=== PATIENT | male | born 1970 | race Caucasian/White ===

== ENCOUNTER 2021-06-19 19:41 | Inpatient (IN) | payer BC ==
[2021-06-19] MEDS ORDERED: Zofran 4 MG/2 ML VIAL IV ONE (20:12)
[2021-06-19] MEDS ORDERED: Hydromorphone 1 mg/ml Injection IV ONE (20:12)
[2021-06-19] MEDS ORDERED: Hydromorphone 1 mg/ml Injection ONE (20:23)
[2021-06-19] MEDS ORDERED: Zofran 4 MG/2 ML VIAL ONE (20:23)
--- NOTE | 2021-06-19 20:34 | ERPHSYRPT ---
- History of Present Illness Time Seen by Provider: 06/19/21 19:43 Source: patient Exam Limitations: no limitations Patient Subjective Stated Complaint: Patient states " Triage Nursing Assessment: Patient arrived to ED Physician History: 51 years old male with a history of hypertension, anxiety/depression, chronic pain presented in the ER with chief complaint of bilateral thigh cramping for the last 3 to 4 days with progressive worsening. Patient reports pain with movements of lower extremities/ambulation and better with resting. Does have chronic swelling left ankle after surgery which is not any worse than usual. Denies any fall or trauma. No swelling of thighs reported. Does reports having similar symptoms few years ago when he was admitted at [facility] and was found to have hypokalemia. He was supposed to take potassium supplements but has stopped taking for quite some time. Denies any chest pain palpitations or shortness of breath. Does have generalized weakness fatigue and malaise feeling. Vaccinated against COVID-19. Timing/Duration: day(s) (4), intermittent, gradual onset, worse Severity: moderate Modifying Factors: Improves With: rest. Worsens With: movement Associated Symptoms: weakness Allergies/Adverse Reactions: No Known Drug Allergies Allergy (Verified 06/20/21 02:25) Home Medications: Carvedilol 12.5 mg [Coreg 12.5 mg] 12.5 mg PO BID 04/09/16 [History] Desvenlafaxine Succinate [Pristiq ER] 50 mg PO DAILY 04/09/16 [History] Meloxicam 15 mg [Meloxicam 15 MG] 15 mg PO DAILY 04/09/16 [History] Amlodipine Besylate/Benazepril [Amlodipine-Benazepril 10-40 mg] 1 tab PO DAILY 06/19/21 [History] Hx Tetanus, Diphtheria Vaccination/Date Given: No Hx Influenza Vaccination/Date Given: No Hx Pneumococcal Vaccination/Date Given: No Immunizations Up to Date: Yes Travel Risk - International Travel Have you traveled outside of the country in past 3 weeks: No - Coronavirus Screening Are you exhibiting any of the following symptoms?: No Close contact with a COVID-19 positive Pt in past 14-21 Days: No - Vaccine Status Have you recieved a Covid-19 vaccination: Yes Project Engineer: [employer] - Vaccination Dates Date of 2cond Vaccination (if applicable): 04/16/21 - Review of Systems Constitutional: Fatigue, Weakness Eyes: No Symptoms Ears, Nose, & Throat: No Symptoms Respiratory: No Symptoms Cardiac: No Symptoms Abdominal/Gastrointestinal: No Symptoms Genitourinary Symptoms: No Symptoms Musculoskeletal: Arthralgias, Myalgias Skin: No Symptoms Neurological: No Symptoms Psychological: No Symptoms Endocrine: No Symptoms Hematologic/Lymphatic: No Symptoms Immunological/Allergic: No Symptoms - Past Medical History Pertinent Past Medical History: Yes Neurological History: No Pertinent History ENT History: No Pertinent History Cardiac History: Hypertension, Other Respiratory History: No Pertinent History Endocrine Medical History: No Pertinent History Musculoskeletal History: Degenerative Disk Disease, Osteoarthritis GI Medical History: No Pertinent History History: No Pertinent History Psycho-Social History: Depression Male Reproductive Disorders: No Pertinent History Other Medical History: mitral valve prolapse, got a spinal injection for pain 3 weeks ago. R LEN 4 years ago. Pt has cadaver bone graft in the R knee. - Past Surgical History Past Surgical History: Yes Neuro Surgical History: No Pertinent History Cardiac: No Pertinent History Respiratory: No Pertinent History Gastrointestinal: Hernia Repair Genitourinary: No Pertinent History Musculoskeletal: Joint Replacement Male Surgical History: No Pertinent History Other Surgical History: R hip replacement - Social History Smoking Status: Current every day smoker How long have you smoked: 16 years Exposure to second hand smoke: Yes Drug Use: none Patient Lives Alone: No - Nursing Vital Signs Nursing Vital Signs: Initial Vital Signs Temperature 97.6 F 06/19/21 19:41 Pulse Rate 60 06/19/21 19:41 Respiratory Rate 18 06/19/21 19:41 Blood Pressure 114/64 06/19/21 19:41 O2 Sat by Pulse Oximetry 100 06/19/21 19:41 Pain Scale Pain Intensity 3 - Physical Exam General Appearance: no apparent distress, alert Eye Exam: PERRL/EOMI, eyes nml inspection Ears, Nose, Throat Exam: normal ENT inspection, pharynx normal Neck Exam: normal inspection, supple, full range of motion Respiratory Exam: normal breath sounds, lungs clear Cardiovascular Exam: regular rate/rhythm, normal heart sounds Gastrointestinal/Abdomen Exam: soft, normal bowel sounds, No tenderness Back Exam: normal inspection, normal range of motion Extremity Exam: swelling (Left ankle with pitting edema and also swelling left foot. Well palpable dorsalis pedis. Cap refill less than 3 seconds.), tenderness (Tenderness bilateral thigh muscles without any swelling. No increased temperature. No bony tenderness.), other, No roseanna's sign Neurologic Exam: alert, oriented x 3, cooperative, purler II-XII nml as tested Skin Exam: normal color SpO2 Interpretation: normal SpO2: 100 O2 Delivery: Room Air - Course EKG Interpreted by Me: RATE (59), Sinus Ha, NORMAL AXIS, NORMAL INTERVALS, Non-specific ST Changes, Other (Nonspecific T wave changes) Ordered Tests: Medication Summary Generic Name Dose Route Start Last Admin Trade Name Freq PRN Reason Stop Dose Admin Acetaminophen 1,000 mg 06/21/21 17:11 06/21/21 17:12 Acetaminophen 500 Mg Tablet PO 07/21/21 17:10 1,000 mg Q4H PRN PRN Administration HEADACHE Hydrocodone Bitart/Acetaminophen 1 tab 06/21/21 17:11 06/21/21 18:24 Hydrocodone/Apap 5/325 Mg Tablet PO 06/26/21 17:10 1 tab Q4H PRN PRN Administration PAIN Amlodipine Besylate 10 mg 06/20/21 10:00 06/21/21 09:08 Amlodipine Besylate 5 Mg Tablet PO 07/20/21 09:59 10 mg DAILY ISA Administration Benazepril HCl 40 mg 06/20/21 10:00 06/21/21 09:08 Benazepril Hcl 10 Mg Tablet PO 07/20/21 09:59 40 mg DAILY ISA Administration Carvedilol 12.5 mg 06/20/21 10:00 06/21/21 09:08 Carvedilol 12.5 Mg Tablet PO 07/20/21 09:59 12.5 mg BID ISA Administration Desvenlafaxine Succinate 25 mg 06/22/21 10:00 Desvenlafaxine Succinate 50 Mg Tab.Er.24h PO 07/22/21 09:59 DAILY ISA Meloxicam 15 mg 06/20/21 10:00 06/21/21 09:08 Meloxicam 7.5 Mg Tablet PO 07/20/21 09:59 15 mg DAILY ISA Administration Ondansetron HCl 4 mg 06/20/21 02:12 Ondansetron Hcl 4 Mg/2 Ml Vial IV 07/20/21 02:11 Q6H PRN PRN NAUSEA/VOMITING Pantoprazole Sodium 40 mg 06/20/21 10:00 06/21/21 09:08 Pantoprazole 40 Mg Vial IV 07/20/21 09:59 40 mg Q24H10 ISA Administration Potassium Bicarbonate 25 meq 06/20/21 10:00 06/21/21 09:08 Potassium Bicarbonate 25 Meq Tab PO 07/20/21 09:59 25 meq BID ISA Administration Discontinued Medications Generic Name Dose Route Start Last Admin Trade Name Freq PRN Reason Stop Dose Admin Acetaminophen 650 mg 06/20/21 02:12 06/20/21 19:31 Acetaminophen 325 Mg Tablet PO 07/20/21 02:11 650 mg Q4H PRN PRN Administration PAIN AND/OR FEVER Desvenlafaxine Succinate 50 mg 06/20/21 10:00 06/21/21 07:30 Desvenlafaxine Succinate 50 Mg Tab.Er.24h PO 07/20/21 09:59 Not Given DAILY ISA Hydromorphone HCl 0.5 mg 06/19/21 20:12 06/19/21 20:33 Hydromorphone 1 Mg/1ml Inj 1 Mg/Ml Syringe IV 06/19/21 20:13 0.5 mg STAT ONE Administration Hydromorphone HCl Confirm 06/19/21 20:23 Hydromorphone 1 Mg/1ml Inj 1 Mg/Ml Syringe Administered 06/19/21 20:24 Dose 1 mg .ROUTE .STK-MED ONE Hydromorphone HCl 0.5 mg 06/20/21 02:12 06/21/21 12:29 Hydromorphone 1 Mg/1ml Inj 1 Mg/Ml Syringe IV 06/25/21 02:11 0.5 mg Q4H PRN PRN Administration PAIN Potassium Chloride 20 meq in 100 mls @ 50 mls/hr 06/19/21 21:15 06/19/21 22:15 Potassium Chloride 20 Meq In Water 100ml IV 06/20/21 01:14 50 mls/hr Q2H ISA Administration Sodium Chloride Confirm 06/19/21 21:35 Sodium Chloride 0.9% 500 Ml Administered 06/19/21 21:36 Dose 500 mls @ ud IV .STK-MED ONE Sodium Chloride 500 mls @ 100 mls/hr 06/19/21 21:45 06/20/21 06:08 Sodium Chloride 0.9% 500 Ml IV 07/19/21 21:44 100 mls/hr .Q5H ISA Administration Potassium Chloride Confirm 06/19/21 21:35 Potassium Chloride 20 Meq In Water 100ml Administered 06/19/21 21:36 Dose 100 mls @ ud IV .STK-MED ONE Potassium Chloride Confirm 06/19/21 22:02 Potassium Chloride 20 Meq In Water 100ml Administered 06/19/21 22:03 Dose 100 mls @ ud IV .STK-MED ONE Potassium Chloride 20 meq in 100 mls @ 50 mls/hr 06/20/21 02:12 06/20/21 04:38 Potassium Chloride 20 Meq In Water 100ml IV 06/20/21 06:11 50 mls/hr Q2H ISA Administration Sodium Chloride Confirm 06/20/21 05:58 Sodium Chloride 0.9% 1000 Ml Administered 06/20/21 05:59 Dose 1,000 mls @ ud .ROUTE .STK-MED ONE Sodium Chloride 1,000 mls @ 100 mls/hr 06/20/21 07:45 06/20/21 13:55 Sodium Chloride 0.9% 1000 Ml IV 07/20/21 07:44 Not Given .Q10H ISA Potassium Chloride 20 meq in 100 mls @ 50 mls/hr 06/20/21 09:30 06/20/21 12:16 Potassium Chloride 20 Meq In Water 100ml IV 06/20/21 13:29 50 mls/hr Q2H ISA Administration Potassium Chloride/Sodium Chloride 1,000 mls @ 100 mls/hr 06/20/21 13:00 06/21/21 00:36 Sodium Chloride 0.9% W/ 20 Meq Kcl/Liter IV 07/20/21 12:59 Not Given .Q10H ISA Potassium Chloride/Sodium Chloride Confirm 06/20/21 09:38 Sodium Chloride 0.9% W/ 20 Meq Kcl/Liter Administered 06/20/21 09:39 Dose 1,000 mls @ ud IV .STK-MED ONE Potassium Chloride 20 meq in 100 mls @ 50 mls/hr 06/20/21 17:00 06/20/21 19:31 Potassium Chloride 20 Meq In Water 100ml IV 06/20/21 20:59 50 mls/hr Q2H ISA Administration Potassium Chloride 20 meq in 100 mls @ 50 mls/hr 06/20/21 21:00 06/21/21 00:42 Potassium Chloride 20 Meq In Water 100ml IV 06/21/21 00:59 50 mls/hr Q2H ISA Administration Potassium Chloride 20 meq in 100 mls @ 50 mls/hr 06/21/21 06:00 06/21/21 0 7:41 Potassium Chloride 20 Meq In Water 100ml IV 06/21/21 09:59 50 mls/hr Q2H ISA Administration Potassium Chloride 20 meq in 100 mls @ 50 mls/hr 06/21/21 13:00 06/21/21 14:14 Potassium Chloride 20 Meq In Water 100ml IV 06/21/21 16:59 50 mls/hr Q2H ISA Administration Ketorolac Tromethamine 30 mg 06/19/21 23:33 06/19/21 23:54 Ketorolac Tromethamine 30 Mg/Ml Inj IV 06/19/21 23:34 30 mg STAT ONE Administration Ketorolac Tromethamine Confirm 06/19/21 23:44 Ketorolac Tromethamine 30 Mg/Ml Inj Administered 06/19/21 23:45 Dose 30 mg .ROUTE .STK-MED ONE Miscellaneous Medication 1 ea 06/21/21 10:00 06/21/21 09:08 Miscellaneous Medication Order 1 Ea Each 06/21/21 10:01 1 ea NOW ONE Administration Non-Formulary Medication 1 each 06/21/21 07:32 06/21/21 09:09 Pharmacy Dosing Request 06/21/21 07:33 1 each STAT ONE Administration Ondansetron HCl 4 mg 06/19/21 20:12 06/19/21 20:33 Ondansetron Hcl 4 Mg/2 Ml Vial IV 06/19/21 20:13 4 mg STAT ONE Administration Ondansetron HCl Confirm 06/19/21 20:23 Ondansetron Hcl 4 Mg/2 Ml Vial Administered 06/19/21 20:24 Dose 4 mg .ROUTE .STK-MED ONE Potassium Bicarbonate 50 meq 06/19/21 21:15 06/19/21 21:38 Potassium Bicarbonate 25 Meq Tab PO 06/19/21 21:16 50 meq STAT ONE Administration Potassium Bicarbonate Confirm 06/19/21 21:34 Potassium Bicarbonate 25 Meq Tab Administered 06/19/21 21:35 Dose 50 meq .ROUTE .STK-MED ONE Potassium Bicarbonate 25 meq 10/27/21 11:00 06/20/21 11:26 Potassium Bicarbonate 25 Meq Tab PO 06/20/21 11:01 25 meq ONCE ONE Administration Potassium Chloride 40 meq 06/20/21 14:00 06/20/21 14:15 Potassium Chloride 10 Meq Tablet PO 06/20/21 14:01 40 meq ONCE ONE Administration Potassium Chloride 40 meq 06/21/21 06:00 06/21/21 05:39 Potassium Chloride 10 Meq Tablet PO 06/21/21 06:01 40 meq STAT ONE Administration Potassium Chloride 40 meq 06/21/21 13:00 06/21/21 12:29 Potassium Chloride 10 Meq Tablet PO 06/21/21 13:01 40 meq ONCE ONE Administration Lab/Rad Data: Laboratory Result Diagrams 06/19/21 20:20 06/20/21 00:22 Laboratory Results 06/20/21 06/19/21 06/19/21 Range/Units 00:22 22:25 21:15 WBC (4.0-10.5) K/mm3 RBC (4.1-5.6) M/mm3 Hgb (12.5-18.0) gm/dl Hct (42-50) % MCV (78-100) fl MCH (26-32) pg MCHC (32-36) g/dl RDW (11.5-14.0) % Plt Count (150-450) K/mm3 MPV (7.5-11.0) fl Gran % (36.0-66.0) % Eos # (Auto) (0-0.5) Absolute Lymphs (auto) (1.0-4.6) Absolute Monos (auto) (0.0-1.3) Lymphocytes % (24.0-44.0) % Monocytes % (0.0-12.0) % Eosinophils % (0.00-5.0) % Basophils % (0.0-0.4) % Absolute Granulocytes (1.4-6.9) Basophils # (0-0.4) Sodium 143 (137-145) mmol/L Potassium 1.9 L* D (3.5-5.1) mmol/L Chloride 104 (98-107) mmol/L Carbon Dioxide 25 (22-30) mmol/L Anion Gap 15.3 H BUN 13 (9-20) mg/dL Creatinine 0.91 (0.66-1.25) mg/dL Estimated GFR > 60.0 ML/MIN Glucose 82 (74-106) mg/dL Calcium 8.4 (8.4-10.2) mg/dL Magnesium (1.6-2.3) mg/dL Total Bilirubin (0.2-1.3) mg/dL AST (17-59) U/L ALT (0-50) U/L Alkaline Phosphatase (38-126) U/L Creatine Kinase (55-170) U/L Troponin I 0.057 H* 0.065 H* (0.000-0.034) ng/mL NT-Pro-B Natriuret Pep (0-900) pg/mL Serum Total Protein (6.3-8.2) g/dL Albumin (3.5-5.0) g/dL SARS-CoV-2 (PCR) NEGATIVE (NEGATIVE) 06/19/21 06/19/21 06/19/21 Range/Units 21:00 20:20 20:20 WBC (4.0-10.5) K/mm3 RBC (4.1-5.6) M/mm3 Hgb (12.5-18.0) gm/dl Hct (42-50) % MCV (78-100) fl MCH (26-32) pg MCHC (32-36) g/dl RDW (11.5-14.0) % Plt Count (150-450) K/mm3 MPV (7.5-11.0) fl Gran % (36.0-66.0) % Eos # (Auto) (0-0.5) Absolute Lymphs (auto) (1.0-4.6) Absolute Monos (auto) (0.0-1.3) Lymphocytes % (24.0-44.0) % Monocytes % (0.0-12.0) % Eosinophils % (0.00-5.0) % Basophils % (0.0-0.4) % Absolute Granulocytes (1.4-6.9) Basophils # (0-0.4) Sodium 141 (137-145) mmol/L Potassium < 1.5 L* (3.5-5.1) mmol/L Chloride 101 (98-107) mmol/L Carbon Dioxide 25 (22-30) mmol/L Anion Gap Not Reportable BUN 14 (9-20) mg/dL Creatinine 0.99 (0.66-1.25) mg/dL Estimated GFR > 60.0 ML/MIN Glucose 84 (74-106) mg/dL Calcium 8.9 (8.4-10.2) mg/dL Magnesium 2.3 (1.6-2.3) mg/dL Total Bilirubin 0.70 (0.2-1.3) mg/dL AST 59 (17-59) U/L ALT 34 (0-50) U/L Alkaline Phosphatase 179 H (38-126) U/L Creatine Kinase 231 H (55-170) U/L Troponin I (0.000-0.034) ng/mL NT-Pro-B Natriuret Pep 488 (0-900) pg/mL Serum Total Protein 7.5 (6.3-8.2) g/dL Albumin 4.3 (3.5-5.0) g/dL SARS-CoV-2 (PCR) (NEGATIVE) 06/19/21 Range/Units 20:20 WBC 8.7 (4.0-10.5) K/mm3 RBC 3.14 L (4.1-5.6) M/mm3 Hgb 12.4 L (12.5-18.0) gm/dl Hct 34.9 L (42-50) % MCV 111.1 H (78-100) fl MCH 39.5 H (26-32) pg MCHC 35.5 (32-36) g/dl RDW 14.3 H (11.5-14.0) % Plt Count 206 (150-450) K/mm3 MPV 10.9 (7.5-11.0) fl Gran % 59.3 (36.0-66.0) % Eos # (Auto) 0.11 (0-0.5) Absolute Lymphs (auto) 2.84 (1.0-4.6) Absolute Monos (auto) 0.58 (0.0-1.3) Lymphocytes % 32.5 (24.0-44.0) % Monocytes % 6.6 (0.0-12.0) % Eosinophils % 1.3 (0.00-5.0) % Basophils % 0.3 (0.0-0.4) % Absolute Granulocytes 5.18 (1.4-6.9) Basophils # 0.03 (0-0.4) Sodium (137-145) mmol/L Potassium (3.5-5.1) mmol/L Chloride (98-107) mmol/L Carbon Dioxide (22-30) mmol/L Anion Gap BUN (9-20) mg/dL Creatinine (0.66-1.25) mg/dL Estimated GFR ML/MIN Glucose (74-106) mg/dL Calcium (8.4-10.2) mg/dL Magnesium (1.6-2.3) mg/dL Total Bilirubin (0.2-1.3) mg/dL AST (17-59) U/L ALT (0-50) U/L Alkaline Phosphatase (38-126) U/L Creatine Kinase (55-170) U/L Troponin I (0.000-0.034) ng/mL NT-Pro-B Natriuret Pep (0-900) pg/mL Serum Total Protein (6.3-8.2) g/dL Albumin (3.5-5.0) g/dL SARS-CoV-2 (PCR) (NEGATIVE) - Progress Progress: improved, pain not gone completely Progress Note: 06/19/21 22:09 Is given symptomatic treatment for pain. EKG showed sinus bradycardia without any ST elevation but has nonspecific ST and T wave changes. Negative initial troponins. Chemistry profile showed normal magnesium of 2.3 but potassium less than 1.5. I have discussed with Dr. Simmons, recommended either transfer or consultation with nephrology. [facility] and [facility] are not excepting transfers at present. I have discussed with Dr. Rice compliance officer, reviewed history and lab findings, recommended giving initial oral 50 mg equivalent and initial IV potassium runs 20 M EQ per hour x2 followed by 10 M EQ per hour and repeating oral potassium in few hours. We will repeat potassium after initial few runs and discussed with Dr. Stanley which he agrees with admitting patient in here. Plan discussed with patient who understand and agrees with it. 06/19/21 23:00 patient has elevated initial troponin 0.065 but still continues to deny any pain/shortness of breath. He is given aspirin. Discussed with Dr. Simmons, recommended discussion with [facility] hospitalist and patient to be in the process of transfer list and until then she will take care of patient in here. Discussed with Dr. Headley [facility] hospitalist, reviewed history, work-up and patient is accepted for transfer. Discussed with Dr.: Kaila Will see patient in: hospital (full admit) Counseled pt/family regarding: lab results, diagnosis - Departure Departure Disposition: In-patient Admission Clinical Impression: Hypokalemia, NSTEMI (non-ST elevated myocardial infarction) Condition: Stable Critical Care Time: Yes Critical Care Time(excluding separately billable procedures): Critical 30-74 mins (60)
[2021-06-19 20:36] LABS: Absolute Neutrophil Ct (ANC) 5.18 (1.4-6.9); BASOPHIL % 0.3 % (0.0-0.4); Basophil (Absolute #) 0.03 (0-0.4); Eosinophil % 1.3 % (0.00-5.0); Eosinophil (Absolute #) 0.11 (0-0.5); Hematocrit 34.9 % (42-50); Hemoglobin 12.4 gm/dl (12.5-18.0); Lymphocyte (Absolute #) 2.84 (1.0-4.6); Lymphocytes % 32.5 % (24.0-44.0); Mean Cell Volume 111.1 fl (78-100); Mean Corpuscular Hemoglobin 39.5 pg (26-32); Mean Corpuscular Hgb Concent. 35.5 g/dl (32-36); Mean Platelet Volume 10.9 fl (7.5-11.0); Monocyte (Absolute #) 0.58 (0.0-1.3); Monocytes % 6.6 % (0.0-12.0); Neutrophil % 59.3 % (36.0-66.0); Platelet Count 206 K/mm3 (150-450); Red Blood Count 3.14 M/mm3 (4.1-5.6); Red Cell Distribution Width 14.3 % (11.5-14.0); White Blood Count 8.7 K/mm3 (4.0-10.5)
[2021-06-19 20:54] LABS: ALBUMIN 4.3 g/dL (3.5-5.0); ALKALINE PHOSPHATASE 179 U/L (38-126); BLOOD UREA NITROGEN 14 mg/dL (9-20); CHLORIDE 101 mmol/L (98-107); CK-Creatinine Phosphokinase 231 U/L (55-170); Calcium 8.9 mg/dL (8.4-10.2); Carbon Dioxide 25 mmol/L (22-30); Creatinine 1 0.99 mg/dL (0.66-1.25); EST GLOMERULAR FILTRATION RATE > 60.0 ML/MIN; Glucose 84 mg/dL (74-106); SGOT/AST 59 U/L (17-59); SGPT/ALT 34 U/L (0-50); SODIUM 141 mmol/L (137-145); Total Protein 7.5 g/dL (6.3-8.2)
[2021-06-19 21:14] LABS: Potassium < 1.5 mmol/L (3.5-5.1)
[2021-06-19] MEDS ORDERED: K-LYTE 25 MEQ PO ONE (21:15)
[2021-06-19] MEDS ORDERED: K-LYTE 25 MEQ ONE (21:34)
[2021-06-19] MEDS ORDERED: POTASSIUM CHLORIDE 20 mEq IN WATER 100ML 100 ML IV ONE ×2 (21:35→22:02)
[2021-06-19] MEDS ORDERED: Sodium Chloride 0.9% 500 ML 500 ML IV ONE (21:35)
[2021-06-19] MEDS: POTASSIUM CHLORIDE 20 mEq IN WATER 100ML 20 MEQ/100 ML BAG IV SCH ×2 (21:38→22:15)
[2021-06-19] MEDS: Sodium Chloride 0.9% 500 ML 500 ML IV SCH (21:40)
[2021-06-19] MEDS ORDERED: TORAdol 30 mg Injection IV ONE (23:33)
[2021-06-19] MEDS ORDERED: TORAdol 30 mg Injection ONE (23:44)
[2021-06-20 00:46] LABS: ANION GAP 15.3 MEQ/L (5-15); BLOOD UREA NITROGEN 13 mg/dL (9-20); CHLORIDE 104 mmol/L (98-107); Calcium 8.4 mg/dL (8.4-10.2); Carbon Dioxide 25 mmol/L (22-30); Creatinine 1 0.91 mg/dL (0.66-1.25); EST GLOMERULAR FILTRATION RATE > 60.0 ML/MIN; Glucose 82 mg/dL (74-106); SODIUM 143 mmol/L (137-145)
[2021-06-20 00:55] LABS: Potassium 1.9 mmol/L (3.5-5.1); TROPONIN 0.057 ng/mL (0.000-0.034)
[2021-06-20] MEDS ORDERED: TYLENOL 325 MG PO PRN (02:12)
[2021-06-20] MEDS ORDERED: Zofran 4 MG/2 ML VIAL IV PRN (02:12)
[2021-06-20] MEDS: POTASSIUM CHLORIDE 20 mEq IN WATER 100ML 20 MEQ/100 ML BAG IV SCH ×7 (02:34→22:28)
[2021-06-20 04:00] LABS: Absolute Neutrophil Ct (ANC) 4.71 (1.4-6.9); BASOPHIL % 0.4 % (0.0-0.4); Basophil (Absolute #) 0.03 (0-0.4); Eosinophil % 1.2 % (0.00-5.0); Eosinophil (Absolute #) 0.09 (0-0.5); Hematocrit 30.5 % (42-50); Hemoglobin 10.9 gm/dl (12.5-18.0); Lymphocyte (Absolute #) 2.14 (1.0-4.6); Lymphocytes % 27.8 % (24.0-44.0); Mean Cell Volume 112.5 fl (78-100); Mean Corpuscular Hemoglobin 40.2 pg (26-32); Mean Corpuscular Hgb Concent. 35.7 g/dl (32-36); Monocyte (Absolute #) 0.73 (0.0-1.3); Monocytes % 9.5 % (0.0-12.0); Neutrophil % 61.1 % (36.0-66.0); Platelet Count 155 K/mm3 (150-450); Red Blood Count 2.71 M/mm3 (4.1-5.6); Red Cell Distribution Width 14.2 % (11.5-14.0); White Blood Count 7.7 K/mm3 (4.0-10.5)
[2021-06-20 04:49] LABS: ALBUMIN 3.6 g/dL (3.5-5.0); ALKALINE PHOSPHATASE 134 U/L (38-126); ANION GAP 10.9 MEQ/L (5-15); BLOOD UREA NITROGEN 11 mg/dL (9-20); CHLORIDE 105 mmol/L (98-107); Calcium 8.5 mg/dL (8.4-10.2); Carbon Dioxide 27 mmol/L (22-30); Creatinine 1 0.87 mg/dL (0.66-1.25); EST GLOMERULAR FILTRATION RATE > 60.0 ML/MIN; Glucose 78 mg/dL (74-106); SGOT/AST 50 U/L (17-59); SGPT/ALT 29 U/L (0-50); SODIUM 142 mmol/L (137-145); Total Protein 6.4 g/dL (6.3-8.2)
[2021-06-20 04:54] LABS: Potassium 1.8 mmol/L (3.5-5.1)
[2021-06-20] MEDS ORDERED: Sodium Chloride 0.9% 1000 ML 0 ML ONE (05:58)
[2021-06-20] MEDS: Sodium Chloride 0.9% 500 ML 500 ML IV SCH (06:08)
[2021-06-20] MEDS ORDERED: Sodium Chloride 0.9% 1000 ML 1,000 ML IV SCH (07:45)
--- NOTE | 2021-06-20 08:40 | XRAY ---
Indication: Palpitations. Multiple contiguous axial images obtained through the chest using 100 cc Isovue 370 contrast and PE protocol. Comparison: None There is good opacification of the pulmonary arteries to include the lobar and segmental branches. No pulmonary embolus. Heart not enlarged. Aorta normal in course and caliber without aneurysm/dissection. No pathologic mediastinal/hilar lymphadenopathy. Lungs demonstrates small left apical bullae, minimal bibasilar fibrosis/scarring, and tiny left lower lobe calcified granuloma. No suspicious pulmonary mass/nodule, infiltrate, or effusion. Bony thorax intact. Limited upper abdomen demonstrates 15 cm splenomegaly and 2.4 cm right renal cyst. Visualized liver demonstrates micronodular margins as seen with cirrhosis. Impression: 1. Negative pulmonary embolus. No acute cardiopulmonary abnormalities. 2. Incidental left apical bullae, left lower lobe calcified granuloma, cirrhotic liver, splenomegaly, and right renal cyst. Comment: Preliminary interpretation made by [facility]. No critical discrepancy.
[2021-06-20] MEDS: PROTONIX 40 MG IV IV SCH (08:56)
[2021-06-20] MEDS: Hydromorphone 1 mg/ml Injection IV PRN ×3 (09:00→18:19)
[2021-06-20] MEDS: MELOXICAM PO SCH (09:01)
[2021-06-20] MEDS: PRISTIQ ER PO SCH (09:01)
[2021-06-20] MEDS: NORVASC 5 MG PO SCH (09:12)
[2021-06-20] MEDS ORDERED: Sodium Chloride 0.9% W/ 20 mEq KCl/LITER 1,000 ML IV ONE (09:38)
[2021-06-20] MEDS: Sodium Chloride 0.9% W/ 20 mEq KCl/LITER 1,000 ML IV SCH (09:41)
[2021-06-20] MEDS: K-LYTE 25 MEQ PO SCH ×2 (09:41→21:26)
[2021-06-20] MEDS ORDERED: NON-FORMULARY ITEM (Meloxicam 15 Mg [Meloxicam 15 Mg] 15 MG Tablet) PO SCH (10:00)
[2021-06-20] MEDS ORDERED: NON-FORMULARY ITEM (Amlodipine Besylate/Benazepril [Amlodipine-Benazepril 10-40 Mg] 1 EACH PO SCH (10:00)
[2021-06-20] MEDS ORDERED: K-LYTE 25 MEQ PO ONE (11:00)
[2021-06-20] MEDS: COREG 12.5 MG PO SCH ×2 (13:18→21:27)
[2021-06-20] MEDS: Lotensin 10 MG PO SCH (13:18)
[2021-06-20] MEDS ORDERED: Klor Con 10 MEQ PO ONE (14:00)
[2021-06-20 16:37] LABS: ANION GAP 9.5 MEQ/L (5-15); BLOOD UREA NITROGEN 9 mg/dL (9-20); CHLORIDE 106 mmol/L (98-107); Calcium 8.4 mg/dL (8.4-10.2); Carbon Dioxide 32 mmol/L (22-30); EST GLOMERULAR FILTRATION RATE > 60.0 ML/MIN; Glucose 140 mg/dL (74-106); SODIUM 145 mmol/L (137-145)
[2021-06-20 16:48] LABS: Potassium 2.1 mmol/L (3.5-5.1)
[2021-06-21] MEDS: Sodium Chloride 0.9% W/ 20 mEq KCl/LITER 1,000 ML IV SCH (00:36)
[2021-06-21] MEDS: POTASSIUM CHLORIDE 20 mEq IN WATER 100ML 20 MEQ/100 ML BAG IV SCH ×5 (00:42→14:14)
[2021-06-21] MEDS: Hydromorphone 1 mg/ml Injection IV PRN ×3 (04:03→12:29)
[2021-06-21] MEDS ORDERED: Klor Con 10 MEQ PO ONE ×4 (06:00→20:26)
[2021-06-21] MEDS: PRISTIQ ER PO SCH (07:30)
[2021-06-21] MEDS ORDERED: PHARMACY DOSING REQUEST MC ONE (07:32)
--- NOTE | 2021-06-21 07:40 | PCM.NOTE ---
Date and Time: 06/21/21731 Subjective Assessment: Patient continues to have low potassium.On admission Potassium= 1.5 . This morning potassium = 2.0 . [facility] Farmer has given orders for IV and oral potassium 40meq and 40meq then repeat and retest level. Potassium this evening = 2.4 . Patient takes antidepressant Prestique which can cause Hypokalemia as can most of the SSRI group. We cannot stop this med abruptly but will hold todays dose and decrease to 1/2 dose . Patient's PCP is Dr Camila Morse. Objective Exam General Appearance: no apparent distress Neurologic Exam: alert, oriented x 3, cooperative, normal mood/affect Skin Exam: normal color, warm, dry Eye Exam: eyes nml inspection Ears, Nose, Throat Exam: normal ENT inspection Neck Exam: normal inspection Respiratory Exam: normal breath sounds Cardiovascular Exam: regular rate/rhythm Gastrointestinal/Abdomen Exam: soft (nont), normal bowel sounds (nontrnder) Extremity Exam: other (no edema,normal movement of all extremities) Back Exam: normal inspection OBJECTIVE DATA Vital Signs: Vital Signs - 24 hr Temp Pulse Resp BP Pulse Ox 06/21/21 04:00 98.4 F 63 18 128/52 97 06/21/21 00:00 98.2 F 67 18 129/61 96 06/20/21 20:00 71 22 06/20/21 19:38 98.6 F 74 22 123/54 98 06/20/21 16:00 98.3 F 65 14 116/61 99 06/20/21 12:00 62 06/20/21 11:53 99.3 F 62 18 111/57 100 06/20/21 08:00 98.1 F 59 L 18 105/56 99 Pain Assessment - Last Documented Pain Intensity 4 Pain Scale Used 0-10 Pain Scale Intake and Output: Intake & Output 06/18/21 06/19/21 06/20/21 06/21/21 11:59 11:59 11:59 11:59 Intake Total 100 2991 Output Total 1050 4210 Balance -950 -1219 Weight 89.2 kg 89.6 kg Lab Results: Lab Results-Last 24 Hours 06/20/21 06/20/21 06/21/21 Range/Units 09:20 16:10 04:30 Sodium 145 (137-145) mmol/L Potassium 2.1 L* 2.0 L* (3.5-5.1) mmol/L Chloride 106 (98-107) mmol/L Carbon Dioxide 32 H (22-30) mmol/L Anion Gap 9.5 (5-15) MEQ/L BUN 9 (9-20) mg/dL Creatinine 0.80 (0.66-1.25) mg/dL Estimated GFR > 60.0 ML/MIN Glucose 140 H (74-106) mg/dL Calcium 8.4 (8.4-10.2) mg/dL Troponin I 0.061 H* (0.000-0.034) ng/mL Assessment/Plan (1) Hypokalemia Current Visit: Yes Status: Acute Assessment & Plan: [facility] following - awaiting transfer to [place]. Has tolerated IV potassium. Code(s): E87.6 - HYPOKALEMIA (2) NSTEMI (non-ST elevated myocardial infarction) Current Visit: Yes Status: Acute Assessment & Plan: stable ,asymptomatic Code(s): I21.4 - NON-ST ELEVATION (NSTEMI) MYOCARDIAL INFARCTION (3) Depression Current Visit: Yes Status: Chronic Qualifiers: Depression Type: major depressive disorder Assessment & Plan: decrase Pristique from 50mg to 25mg.,discussed with patient . Code(s): F32.A - DEPRESSION, UNSPECIFIED
[2021-06-21 08:47] LABS: ALBUMIN 3.7 g/dL (3.5-5.0); ALKALINE PHOSPHATASE 136 U/L (38-126); ANION GAP 12.2 MEQ/L (5-15); BLOOD UREA NITROGEN 6 mg/dL (9-20); CHLORIDE 104 mmol/L (98-107); Calcium 8.2 mg/dL (8.4-10.2); Carbon Dioxide 30 mmol/L (22-30); Creatinine 1 0.61 mg/dL (0.66-1.25); EST GLOMERULAR FILTRATION RATE > 60.0 ML/MIN; Glucose 96 mg/dL (74-106); SGOT/AST 69 U/L (17-59); SGPT/ALT 34 U/L (0-50); SODIUM 144 mmol/L (137-145); Total Protein 6.6 g/dL (6.3-8.2)
[2021-06-21] MEDS: NORVASC 5 MG PO SCH (09:08)
[2021-06-21] MEDS: MELOXICAM PO SCH (09:08)
[2021-06-21] MEDS: Lotensin 10 MG PO SCH (09:08)
[2021-06-21] MEDS: PROTONIX 40 MG IV IV SCH (09:08)
[2021-06-21] MEDS: K-LYTE 25 MEQ PO SCH ×2 (09:08→21:37)
[2021-06-21] MEDS: COREG 12.5 MG PO SCH ×2 (09:08→21:37)
[2021-06-21] MEDS ORDERED: Miscellaneous Medication Order MC ONE (10:00)
[2021-06-21] MEDS ORDERED: TYLENOL EXTRA STRENGTH 500 MG PO PRN (17:11)
[2021-06-21] MEDS: NORCO 5/325 MG PO PRN ×2 (18:24→21:37)
[2021-06-21 19:55] LABS: MAGNESIUM 2.2 mg/dL (1.6-2.3)
[2021-06-21 20:01] LABS: Potassium 2.4 mmol/L (3.5-5.1)
[2021-06-21 20:03] VITALS: BP 141/84; PULSE 72
[2021-06-21 20:08] VITALS: O2SAT 100
[2021-06-21] MEDS ORDERED: POTASSIUM CHLORIDE 20 mEq IN WATER 100ML 20 MEQ/100 ML BAG IV SCH (20:30)
[2021-06-22] MEDS ORDERED: PRISTIQ ER PO SCH (10:00)
== END 2021-06-21 21:50 | disposition short-term general hospital (02) | DRG 640 ==
LOC: ED 19:41 → ICU 06-20 02:10
PROVIDERS: ADMIT Family Medicine; ATTEND Family Medicine
DX: E87.6 Hypokalemia (principal); I21.4 Non-ST elevation (NSTEMI) myocardial infarction; R25.2 Cramp and spasm; F32.A Depression, unspecified; R53.1 Weakness; R53.83 Other fatigue; Z79.899 Other long term (current) drug therapy; Z20.822 Contact with and (suspected) exposure to COVID-19
CPT/HCPCS: 36000; 36415; 71260; 80048; 80053; 82306; 82550; 83735; 83880; 84132; 84425; 84484; 85025; 96374; 96375; 99285; 99291; J1170; J1885; J2405; J3480; U0003; A9270-GY

== ENCOUNTER 2021-07-05 21:02 | Emergency (ER) | payer BC, MEDICARE ==
[2013-05-21 00:40] VITALS: BP 150/98
[2021-07-05] MEDS ORDERED: Zofran 4 MG/2 ML VIAL IV ONE (21:21)
--- NOTE | 2021-07-05 21:21 | ERPHSYRPT ---
- History of Present Illness Time Seen by Provider: 07/05/21 21:15 Source: patient Exam Limitations: no limitations Physician History: This is a 51-year-old white male who has a history of hypertension, anxiety/depression issues, degenerative joint disease and chronic pain issues. He sees Dr. Alvares for his pain issues. He was seen here on 06/19/2021 and found to be hypokalemic as well as having non-STEMI. He was transferred to [facility] after being admitted into this hospital because his potassium was not rising as it should. Patient was then discharged to home approximately 2 weeks ago per patient report from [facility]. Again, in the last 2 to 3 days the patient has noticed cramping in his lower extremities and in his hands and forearms. He thought that he was hypokalemic again. He had been placed on his potassium during his stay. Dr. Fay, a director digital communications at [facility] who he saw there at that time. This Also wrote for repeat labs this evening. The patient's potassium was found to be 8.9. A repeat potassium at the time of his evaluation the emergency department confirmed this was a real finding. Patient has very minimal shortness of breath and has no chest pain. He has had no nausea vomiting or diarrhea. Timing/Duration: day(s) (2) Severity: moderate Allergies/Adverse Reactions: No Known Drug Allergies Allergy (Verified 07/05/21 21:10) Home Medications: Carvedilol 12.5 mg [Coreg 12.5 mg] 12.5 mg PO BID 04/09/16 [History] Desvenlafaxine Succinate [Pristiq ER] 50 mg PO DAILY 04/09/16 [History] Meloxicam 15 mg [Meloxicam 15 MG] 15 mg PO DAILY 04/09/16 [History] Amlodipine Besylate/Benazepril [Amlodipine-Benazepril 10-40 mg] 1 tab PO DAILY 06/19/21 [History] PANTOPRAZOLE 40 mg Tablet [Protonix 40MG Tablet] 40 mg PO DAILY 07/05/21 [History] Spironolactone 50 mg PO DAILY 07/05/21 [History] Hx Tetanus, Diphtheria Vaccination/Date Given: No Hx Influenza Vaccination/Date Given: No Hx Pneumococcal Vaccination/Date Given: No Travel Risk - Vaccine Status Have you recieved a Covid-19 vaccination: Yes Jawbone Breaker: Pfizer - Vaccination Dates Date of 2cond Vaccination (if applicable): 04/16/21 - Past Medical History Pertinent Past Medical History: Yes Neurological History: No Pertinent History ENT History: No Pertinent History Cardiac History: Hypertension, Other Respiratory History: No Pertinent History Endocrine Medical History: No Pertinent History Musculoskeletal History: Degenerative Disk Disease, Osteoarthritis GI Medical History: No Pertinent History History: No Pertinent History Psycho-Social History: Depression Male Reproductive Disorders: No Pertinent History Other Medical History: HX Mitral Valve Prolapse. R LEN 4 years ago. Pt has cadaver bone graft in the R knee. - Past Surgical History Past Surgical History: Yes Neuro Surgical History: No Pertinent History Cardiac: No Pertinent History Respiratory: No Pertinent History Gastrointestinal: Hernia Repair Genitourinary: No Pertinent History Musculoskeletal: Joint Replacement Male Surgical History: No Pertinent History Other Surgical History: HX R Hip Replacement - Social History Smoking Status: Current every day smoker How long have you smoked: 16 years Exposure to second hand smoke: Yes Drug Use: none Patient Lives Alone: No - Nursing Vital Signs Nursing Vital Signs: Initial Vital Signs Temperature 96.6 F 07/05/21 21:04 Pulse Rate 77 07/05/21 21:04 Respiratory Rate 22 07/05/21 21:04 Blood Pressure 144/76 07/05/21 21:04 O2 Sat by Pulse Oximetry 100 07/05/21 21:04 Pain Scale Pain Intensity 8 - Physical Exam SpO2: 100 - Course Nursing assessment & vital signs reviewed: Yes EKG Interpreted by Me: RATE (73), Sinus Rhythm, NORMAL AXIS, NORMAL INTERVALS, NORMAL QRS, Other (No acute ischemic changes. However, there are diffuse peaked T waves consistent with hyperkalemia on EKG when compared to the EKG dated 06/19/2021) Ordered Tests: Active Orders 24 hr Category Date Time Status Group Sales Coordinator STAT Care 07/05/21 21:21 Active EKG-ER Only STAT Care 07/05/21 21:21 Active IV Insertion STAT Care 07/05/21 21:21 Active Pulse Oximetry (ED) STAT Care 07/05/21 21:21 Active CBC W DIFF Stat Lab 07/05/21 21:26 Completed CMP Stat Lab 07/05/21 21:26 Completed D-DIMER QUANTITATIVE Stat Lab 07/05/21 21:26 Completed MAG [MAGNESIUM] Stat Lab 07/05/21 21:26 Completed TROPONIN Q3H Lab 07/05/21 21:26 Completed TROPONIN Q3H Lab 07/06/21 00:30 Ordered TROPONIN Q3H Lab 07/06/21 03:30 Ordered TROPONIN Q3H Lab 07/06/21 06:30 Ordered TROPONIN Q3H Lab 07/06/21 09:30 Ordered Medication Summary Discontinued Medications Generic Name Dose Route Start Last Admin Trade Name Joseq PRN Reason Stop Dose Admin Calcium Chloride 1,000 mg 07/05/21 21:30 07/05/21 21:50 Calcium Chloride 100 Mg/Ml 10ml Inj. IV 07/05/21 21:31 1,000 mg STAT ONE Administration Calcium Chloride Confirm 07/05/21 21:44 Calcium Chloride 100 Mg/Ml 10ml Inj. Administered 07/05/21 21:45 Dose 1,000 mg .ROUTE .STK-MED ONE Calcium Chloride 1,000 mg 07/05/21 22:19 07/05/21 22:32 Calcium Chloride 100 Mg/Ml 10ml Inj. IV 07/05/21 22:20 1,000 mg STAT ONE Administration Calcium Chloride Confirm 07/05/21 22:30 Calcium Chloride 100 Mg/Ml 10ml Inj. Administered 07/05/21 22:31 Dose 1,000 mg .ROUTE .STK-MED ONE Dextrose 50 ml 07/05/21 21:31 07/05/21 21:50 Dextrose 50%-Water 50 Ml Abboject IV 07/05/21 21:32 50 ml STAT ONE Administration Dextrose Confirm 07/05/21 21:46 Dextrose 50%-Water 50 Ml Abboject Administered 07/05/21 21:47 Dose 50 ml IV .STK-MED ONE Furosemide 20 mg 07/05/21 21:33 07/05/21 21:52 Furosemide 20 Mg/Vial IV 07/05/21 21:34 20 mg STAT ONE Administration Furosemide Confirm 07/05/21 21:46 Furosemide 40 Mg/4 Ml Vial Administered 07/05/21 21:47 Dose 40 mg .ROUTE .STK-MED ONE Hydromorphone HCl 1 mg 07/05/21 21:22 07/05/21 21:42 Hydromorphone 1 Mg/1ml Inj 1 Mg/Ml Syringe IV 07/05/21 21:23 1 mg STAT ONE Administration Hydromorphone HCl Confirm 07/05/21 21:37 Hydromorphone 1 Mg/1ml Inj 1 Mg/Ml Syringe Administered 07/05/21 21:38 Dose 1 mg .ROUTE .STK-MED ONE Sodium Chloride 1,000 mls @ 999 mls/hr 07/05/21 21:33 07/05/21 21:41 Sodium Chloride 0.9% 1000 Ml IV 07/05/21 22:33 999 mls/hr .Q1H1M STA Administration Sodium Chloride Confirm 07/05/21 21:37 Sodium Chloride 0.9% 1000 Ml Administered 07/05/21 21:38 Dose 1,000 mls @ ud .ROUTE .STK-MED ONE Insulin Human Regular 2 unit 07/05/21 21:32 07/05/21 21:50 Insulin Regular, Human 1 Unit IV 07/05/21 21:33 2 unit STAT ONE Administration Insulin Human Regular Confirm 07/05/21 21:45 Insulin Regular, Human 1 Unit Administered 07/05/21 21:46 Dose 2 unit .ROUTE .STK-MED ONE Ondansetron HCl 4 mg 07/05/21 21:21 07/05/21 21:41 Ondansetron Hcl 4 Mg/2 Ml Vial IV 07/05/21 21:22 4 mg STAT ONE Administration Ondansetron HCl Confirm 07/05/21 21:36 Ondansetron Hcl 4 Mg/2 Ml Vial Administered 07/05/21 21:37 Dose 4 mg .ROUTE .STK-MED ONE Patiromer 8.4 gm 07/05/21 21:38 07/05/21 22:22 Patiromer Calcium Sorbitex 8.4 Gm Powd.Pack PO 07/05/21 21:39 8.4 gm STAT STA Administration Patiromer Confirm 07/05/21 22:16 Patiromer Calcium Sorbitex 8.4 Gm Powd.Pack Administered 07/05/21 22:17 Dose 8.4 gm PO .STK-MED ONE Sodium Bicarbonate 50 meq 07/05/21 22:20 07/05/21 22:32 Sodium Bicarbonate 1 Meq/Ml 50ml Syringe IV 07/05/21 22:21 50 meq STAT ONE Administration Sodium Bicarbonate Confirm 07/05/21 22:30 Sodium Bicarbonate 1 Meq/Ml 50ml Syringe Administered 07/05/21 22:31 Dose 50 meq IV .STK-MED ONE Lab/Rad Data: Laboratory Result Diagrams 07/05/21 21:26 07/05/21 21:26 Laboratory Results 07/05/21 07/05/21 07/05/21 Range/Units 21:26 21:26 21:26 WBC (4.0-10.5) K/mm3 RBC (4.1-5.6) M/mm3 Hgb (12.5-18.0) gm/dl Hct (42-50) % MCV (78-100) fl MCH (26-32) pg MCHC (32-36) g/dl RDW (11.5-14.0) % Plt Count (150-450) K/mm3 MPV (7.5-11.0) fl Gran % (36.0-66.0) % Eos # (Auto) (0-0.5) Absolute Lymphs (auto) (1.0-4.6) Absolute Monos (auto) (0.0-1.3) Lymphocytes % (24.0-44.0) % Monocytes % (0.0-12.0) % Eosinophils % (0.00-5.0) % Basophils % (0.0-0.4) % Absolute Granulocytes (1.4-6.9) Basophils # (0-0.4) D-Dimer 906 H* (215-500) ng/mL Sodium 137 (137-145) mmol/L Potassium 8.9 H* (3.5-5.1) mmol/L Chloride 110 H (98-107) mmol/L Carbon Dioxide 13 L* (22-30) mmol/L Anion Gap 23.4 H (5-15) MEQ/L BUN 42 H (9-20) mg/dL Creatinine 2.81 H (0.66-1.25) mg/dL Estimated GFR 25.5 ML/MIN Glucose 91 (74-106) mg/dL Calcium 10.8 H (8.4-10.2) mg/dL Magnesium 2.6 H (1.6-2.3) mg/dL Total Bilirubin 0.80 (0.2-1.3) mg/dL AST 29 (17-59) U/L ALT 22 (0-50) U/L Alkaline Phosphatase 106 (38-126) U/L Troponin I < 0.012 (0.000-0.034) ng/mL Serum Total Protein 9.2 H (6.3-8.2) g/dL Albumin 5.3 H (3.5-5.0) g/dL 07/05/21 Range/Units 21:26 WBC 13.4 H (4.0-10.5) K/mm3 RBC 3.73 L (4.1-5.6) M/mm3 Hgb 14.6 (12.5-18.0) gm/dl Hct 43.3 (42-50) % MCV 116.1 H (78-100) fl MCH 39.1 H (26-32) pg MCHC 33.7 (32-36) g/dl RDW 12.4 (11.5-14.0) % Plt Count 262 (150-450) K/mm3 MPV 11.1 H (7.5-11.0) fl Gran % 64.3 (36.0-66.0) % Eos # (Auto) 0.04 (0-0.5) Absolute Lymphs (auto) 3.57 (1.0-4.6) Absolute Monos (auto) 1.11 (0.0-1.3) Lymphocytes % 26.7 (24.0-44.0) % Monocytes % 8.3 (0.0-12.0) % Eosinophils % 0.3 (0.00-5.0) % Basophils % 0.4 (0.0-0.4) % Absolute Granulocytes 8.58 H (1.4-6.9) Basophils # 0.05 (0-0.4) D-Dimer (215-500) ng/mL Sodium (137-145) mmol/L Potassium (3.5-5.1) mmol/L Chloride (98-107) mmol/L Carbon Dioxide (22-30) mmol/L Anion Gap (5-15) MEQ/L BUN (9-20) mg/dL Creatinine (0.66-1.25) mg/dL Estimated GFR ML/MIN Glucose (74-106) mg/dL Calcium (8.4-10.2) mg/dL Magnesium (1.6-2.3) mg/dL Total Bilirubin (0.2-1.3) mg/dL AST (17-59) U/L ALT (0-50) U/L Alkaline Phosphatase (38-126) U/L Troponin I (0.000-0.034) ng/mL Serum Total Protein (6.3-8.2) g/dL Albumin (3.5-5.0) g/dL - Progress Progress: improved Progress Note: 07/05/21 22:41 medical decision making: This patient has acute renal failure as well as hyperkalemia. I spoke with director digital communications Dr. Fay who knows this patient. He feels the patient should receive an additional 1000 mg of intravenous calcium chloride as well as an amp of sodium and bicarbonate. We have infused that recommendation. He also feels the patient should be transferred to [facility]. I called [facility] 1 call access and spoke with hospitalist Dr. Dalton. I reviewed the patient history, condition, physical findings, EKG results and results of laboratory data. She knows this patient as well. She admitted this patient to [facility] approximately 16 days ago. She accepts the patient for transfer. 07/05/21 22:49 Counseled pt/family regarding: lab results, diagnosis - Departure Departure Disposition: Transfer Clinical Impression: Hyperkalemia, Acute renal failure, Elevated d-dimer Condition: Fair Critical Care Time: Yes Critical Care Time(excluding separately billable procedures): Critical 30-74 mins (40 minutes) Referrals: JUSTICE ALMANZA [Primary Care Provider] - Follow up/PCP as directed
[2021-07-05] MEDS ORDERED: Hydromorphone 1 mg/ml Injection IV ONE (21:22)
[2021-07-05 21:30] LABS: Absolute Neutrophil Ct (ANC) 8.58 (1.4-6.9); BASOPHIL % 0.4 % (0.0-0.4); Basophil (Absolute #) 0.05 (0-0.4); Eosinophil % 0.3 % (0.00-5.0); Eosinophil (Absolute #) 0.04 (0-0.5); Hematocrit 43.3 % (42-50); Hemoglobin 14.6 gm/dl (12.5-18.0); Lymphocyte (Absolute #) 3.57 (1.0-4.6); Lymphocytes % 26.7 % (24.0-44.0); Mean Cell Volume 116.1 fl (78-100); Mean Corpuscular Hemoglobin 39.1 pg (26-32); Mean Corpuscular Hgb Concent. 33.7 g/dl (32-36); Mean Platelet Volume 11.1 fl (7.5-11.0); Monocyte (Absolute #) 1.11 (0.0-1.3); Monocytes % 8.3 % (0.0-12.0); Neutrophil % 64.3 % (36.0-66.0); Platelet Count 262 K/mm3 (150-450); Red Blood Count 3.73 M/mm3 (4.1-5.6); Red Cell Distribution Width 12.4 % (11.5-14.0); White Blood Count 13.4 K/mm3 (4.0-10.5)
[2021-07-05] MEDS ORDERED: CALCIUM CHLORIDE 10% 1000 MG IV ONE ×2 (21:30→22:19)
[2021-07-05] MEDS ORDERED: D50W 50 ml Abboject IV ONE ×2 (21:31→21:46)
[2021-07-05] MEDS ORDERED: HUMULIN R IV ONE (21:32)
[2021-07-05] MEDS ORDERED: Lasix 20 MG/2 ML IV ONE (21:33)
[2021-07-05] MEDS ORDERED: Sodium Chloride 0.9% 1000 ML 1,000 ML IV STA (21:33)
[2021-07-05] MEDS ORDERED: Zofran 4 MG/2 ML VIAL ONE (21:36)
[2021-07-05] MEDS ORDERED: Hydromorphone 1 mg/ml Injection ONE (21:37)
[2021-07-05] MEDS ORDERED: Sodium Chloride 0.9% 1000 ML 1,000 ML ONE (21:37)
[2021-07-05] MEDS ORDERED: VELTASSA PO STA (21:38)
[2021-07-05 21:40] LABS: ALBUMIN 5.3 g/dL (3.5-5.0); ANION GAP 23.4 MEQ/L (5-15); BILIRUBIN,TOTAL 0.8 mg/dL (0.2-1.3); Calcium 10.8 mg/dL (8.4-10.2); Creatinine 1 2.81 mg/dL (0.66-1.25); EST GLOMERULAR FILTRATION RATE 25.5 ML/MIN; MAGNESIUM 2.6 mg/dL (1.6-2.3); Total Protein 9.2 g/dL (6.3-8.2)
[2021-07-05] MEDS ORDERED: CALCIUM CHLORIDE 10% 1000 MG ONE ×2 (21:44→22:30)
[2021-07-05] MEDS ORDERED: HUMULIN R ONE (21:45)
[2021-07-05] MEDS ORDERED: Lasix 40 MG/4 ML ONE (21:46)
[2021-07-05 21:48] LABS: Potassium 8.9 mmol/L (3.5-5.1)
[2021-07-05] MEDS ORDERED: VELTASSA PO ONE (22:16)
[2021-07-05] MEDS ORDERED: SODIUM BICARBONATE 50 MEQ/50 ML ABBOJECT IV ONE ×2 (22:20→22:30)
== END 2021-07-06 00:15 | disposition short-term general hospital (02) ==
LOC: ED 21:02
DX: N17.9 Acute kidney failure, unspecified (principal); E87.5 Hyperkalemia; R79.1 Abnormal coagulation profile; I10 Essential (primary) hypertension; Z79.899 Other long term (current) drug therapy; Z72.0 Tobacco use; I25.2 Old myocardial infarction
CPT/HCPCS: 36000; 36415; 80053; 83735; 84484; 85025; 85379; 93005; 93041; 94760; 96374; 96375; 96376; 99285; 99291; J1170; J1815; J1940; J2405

== ENCOUNTER 2021-08-15 10:11 | Day surgery (SDC) | payer MEDICARE, BC ==
[2013-05-21 00:40] VITALS: BP 150/98
[2021-08-15] MEDS ORDERED: Depo-Medrol 40 MG/ML IM ONE (10:12)
[2021-08-15] MEDS ORDERED: LIDOCAINE HCL 2% 100 MG/5 ML IJ ONE (10:12)
[2021-08-15] MEDS ORDERED: DIPRIVAN 200 MG/20 ML IV ONE (11:34)
[2021-08-15] MEDS ORDERED: Lactated Ringers 1,000 ML IV ONE (12:04)
--- NOTE | 2021-08-15 13:17 | XRAY ---
Indication: Bilateral L4-S1 MBB. Intraoperative fluoroscopy provided for 10 seconds. Single digital spot image submitted for interpretation demonstrates posterior needle tips projecting over the expected left and right L4-S1 nerve roots. Correlate with intraoperative findings/report.
--- NOTE | 2021-08-15 13:46 | XRAY ---
10 seconds fluoroscopy time in surgery for bilateral L4-S1 MBB.
== END 2021-08-15 12:36 | disposition home or self-care (01) ==
LOC: SDC-PAIN 10:11
PROVIDERS: ATTEND Psychiatry & Neurology Pain Medicine
DX: M47.816 Spondylosis without myelopathy or radiculopathy, lumbar region (principal); I10 Essential (primary) hypertension; Z79.899 Other long term (current) drug therapy
CPT/HCPCS: 64493; 64494; 72020; 77002; J1030; J2704

== ENCOUNTER 2021-09-08 15:21 | Emergency (ER) | payer MEDICARE, BC ==
[2021-09-08 15:34] VITALS: O2SAT 98
[2021-09-08] MEDS ORDERED: MORPHINE SULFATE 4 MG INJ IM ONE (15:34)
[2021-09-08] MEDS ORDERED: NORCO 5/325 MG PO ONE (15:35)
[2021-09-08] MEDS ORDERED: NORCO 5/325 MG ONE (15:39)
[2021-09-08] MEDS ORDERED: MORPHINE SULFATE 4 MG INJ ONE (15:39)
--- NOTE | 2021-09-08 15:39 | ERPHSYRPT ---
- History of Present Illness Time Seen by Provider: 09/08/21 15:26 Source: patient Exam Limitations: no limitations Patient Subjective Stated Complaint: Pt states "I have bone deterioation in my left foot and my surgeon said that he cannot give me anymore pain meds until I get with a pediatrist and he is trying to get me one. I tried my family doctor and he said I need to see a specialist and he is trying to get me into pain management." Triage Nursing Assessment: Pt presented alert and oriented X 3, skin pwd Pt ambulates with a limp. PT has boot on his left foot. PT has no other complaints. Physician History: 51 years old male with history of chronic ankle pain with previous surgeries done currently in a walking boot, doing follow-up with orthopedic surgery and scheduled to see foot and ankle specialist presented in the ER with worsening pain which is getting out of control. Patient denies any fall or trauma. Patient is scheduled to see pain management. Pain is severe sharp shooting, continuous, aggravated with minimal movements and no significant relieving factors. Allergies/Adverse Reactions: No Known Drug Allergies Allergy (Verified 07/05/21 21:10) Home Medications: Carvedilol 12.5 mg [Coreg 12.5 mg] 12.5 mg PO BID 04/09/16 [History] Desvenlafaxine Succinate [Pristiq ER] 50 mg PO DAILY 04/09/16 [History] Meloxicam 15 mg [Meloxicam 15 MG] 15 mg PO DAILY 04/09/16 [History] Amlodipine Besylate/Benazepril [Amlodipine-Benazepril 10-40 mg] 1 tab PO DAILY 06/19/21 [History] PANTOPRAZOLE 40 mg Tablet [Protonix 40MG Tablet] 40 mg PO DAILY 07/05/21 [History] Spironolactone 50 mg PO DAILY 07/05/21 [History] Hx Tetanus, Diphtheria Vaccination/Date Given: No Hx Influenza Vaccination/Date Given: No Hx Pneumococcal Vaccination/Date Given: No Immunizations Up to Date: Yes Travel Risk - International Travel Have you traveled outside of the country in past 3 weeks: No - Coronavirus Screening Are you exhibiting any of the following symptoms?: No Close contact with a COVID-19 positive Pt in past 14-21 Days: No - Vaccine Status Have you recieved a Covid-19 vaccination: No Voice Instructor: Pfizer - Vaccination Dates Date of 2cond Vaccination (if applicable): 04/16/21 - Review of Systems Constitutional: No Symptoms Ears, Nose, & Throat: No Symptoms Respiratory: No Symptoms Cardiac: No Symptoms Abdominal/Gastrointestinal: No Symptoms Musculoskeletal: Joint Pain Skin: No Symptoms Neurological: No Symptoms Psychological: No Symptoms Endocrine: No Symptoms Hematologic/Lymphatic: No Symptoms Immunological/Allergic: No Symptoms - Past Medical History Pertinent Past Medical History: Yes Neurological History: No Pertinent History ENT History: No Pertinent History Cardiac History: Hypertension, Other Respiratory History: No Pertinent History Endocrine Medical History: No Pertinent History Musculoskeletal History: Degenerative Disk Disease, Osteoarthritis GI Medical History: No Pertinent History History: No Pertinent History Psycho-Social History: Depression Male Reproductive Disorders: No Pertinent History Other Medical History: mitral valve prolapse, got a spinal injection for pain 3 weeks ago. R LEN 4 years ago. Pt has cadaver bone graft in the R knee. - Past Surgical History Past Surgical History: Yes Neuro Surgical History: No Pertinent History Cardiac: No Pertinent History Respiratory: No Pertinent History Gastrointestinal: Hernia Repair Genitourinary: No Pertinent History Musculoskeletal: Joint Replacement Male Surgical History: No Pertinent History Other Surgical History: R hip replacement - Social History Smoking Status: Current every day smoker How long have you smoked: 16 years Exposure to second hand smoke: Yes Drug Use: none Patient Lives Alone: No - Nursing Vital Signs Nursing Vital Signs: Initial Vital Signs Temperature 97.8 F 09/08/21 15:27 Pulse Rate 84 09/08/21 15:27 Respiratory Rate 20 09/08/21 15:27 Blood Pressure 203/100 09/08/21 15:27 O2 Sat by Pulse Oximetry 98 09/08/21 15:27 Pain Scale Pain Intensity 8 - Physical Exam General Appearance: no apparent distress, alert Eyes, Ears, Nose, Throat Exam: normal ENT inspection Neck Exam: normal inspection, non-tender, supple, full range of motion Cardiovascular/Respiratory Exam: chest non-tender, normal breath sounds, regular rate/rhythm Back Exam: normal inspection, normal range of motion Legs Exam: bilateral leg: non-tender, normal inspection, normal range of motion, no evidence of injury Knees Exam: bilateral knee: non-tender, normal inspection, normal range of motion Ankle Exam: right ankle: non-tender, normal inspection, normal range of motion, no evidence of injury, left ankle: pain Neuro/Tendon Exam: normal sensation, normal motor functions Mental Status Exam: alert, oriented x 3, cooperative Skin Exam: normal color SpO2 Interpretation: normal SpO2: 98 O2 Delivery: Room Air Ordered Tests: Medication Summary Discontinued Medications Generic Name Dose Route Start Last Admin Trade Name Hai PRN Reason Stop Dose Admin Hydrocodone Bitart/Acetaminophen 2 tab 09/08/21 15:35 09/08/21 15:39 Hydrocodone/Apap 5/325 Mg Tablet PO 09/08/21 15:36 2 tab SENT HOME W/ PATIENT ONE Administration Hydrocodone Bitart/Acetaminophen Confirm 09/08/21 15:39 Hydrocodone/Apap 5/325 Mg Tablet Administered 09/08/21 15:40 Dose 2 tab .ROUTE .STK-MED ONE Morphine Sulfate 4 mg 09/08/21 15:34 09/08/21 15:39 Morphine Sulfate 4 Mg/Ml Injection IM 09/08/21 15:35 4 mg STAT ONE Administration Morphine Sulfate Confirm 09/08/21 15:39 Morphine Sulfate 4 Mg/Ml Injection Administered 09/08/21 15:40 Dose 4 mg .ROUTE .STK-MED ONE - Progress Progress: pain not gone completely Progress Note: 09/08/21 15:36 will give pain meds here and 2 pills to go home and recommended outpatient follow up with pcp and pain management Counseled pt/family regarding: diagnosis, need for follow-up - Departure Departure Disposition: Home Clinical Impression: Ankle pain, left Qualifiers: Chronicity: chronic Qualified Code(s): M25.572 - Pain in left ankle and joints of left foot Condition: Stable Critical Care Time: No Referrals: JUSTICE ALMANZA [Primary Care Provider] - Follow up/PCP as directed (in 2 days for re evaluation ) Instructions: Foot Fracture (DC) Additional Instructions: Take pain medications as needed. Follow-up with primary care/pain management for reevaluation and keep appointment with foot and ankle surgery.
[2021-09-08 15:55] VITALS: BP 174/104; PULSE 78
== END 2021-09-08 15:49 | disposition home or self-care (01) ==
LOC: ED 15:21
DX: M25.572 Pain in left ankle and joints of left foot (principal); G89.29 Other chronic pain; I10 Essential (primary) hypertension; Z72.0 Tobacco use; Z79.899 Other long term (current) drug therapy
CPT/HCPCS: 96372; 99283; J2270; A9270-GY

== ENCOUNTER 2023-01-31 19:33 | Emergency (ER) | payer MEDICARE, OTHER ==
--- NOTE | 2023-01-31 19:38 | ERPHSYRPT ---
- History of Present Illness Time Seen by Provider: 01/31/23 19:37 Source: patient, family Exam Limitations: no limitations Physician History: This is a 53-year-old white male patient who is on buprenorphine pain patch and sees a pain specialist Dr. Amaro out of [facility]. Patient has chronic left lower extremity issues that have been operated on in the past. He has had left foot issues that has been operated on in the past and approximately 5 weeks ago he was operated by an orthopedic surgeon at a [facility]. He had left knee surgery. He followed up with that surgeon 2 weeks ago and was placed on 1 weeks worth of Keflex. However he noticed some green drainage in the last day or 2 and is concerned about infection. He has increased pain in this site. He states that his pain contract does not allow him to receive narcotic pain medicine as an outpatient and therefore he came to the emergency room for a dose of narcotic pain medicine if indicated and antibiotics. Patient continues to smoke cigarettes daily. He has a history of degenerative joint disease, osteoarthritis, hypertension and gastroesophageal reflux disease. His vital signs are stable and he is afebrile upon arrival to the emergency department Timing/Duration: worse, other (Chronic) Severity: mild (To moderate) Associated Symptoms: denies symptoms Allergies/Adverse Reactions: No Known Drug Allergies Allergy (Verified 01/31/23 19:51) Home Medications: Carvedilol 12.5 mg [Coreg 12.5 mg] 12.5 mg PO BID 04/09/16 [History] Desvenlafaxine Succinate [Pristiq ER] 50 mg PO DAILY 04/09/16 [History] Meloxicam 15 mg [Meloxicam 15 MG] 15 mg PO DAILY 04/09/16 [History] PANTOPRAZOLE 40 mg Tablet [Protonix 40MG Tablet] 40 mg PO DAILY 07/05/21 [History] Spironolactone 50 mg PO DAILY 07/05/21 [History] Buprenorphine 1 each TD WEEKLY 01/31/23 [History] Gabapentin [Neurontin ] 300 mg PO TID 01/31/23 [History] Hx Tetanus, Diphtheria Vaccination/Date Given: No Hx Influenza Vaccination/Date Given: No Hx Pneumococcal Vaccination/Date Given: No Travel Risk - International Travel Have you traveled outside of the country in past 3 weeks: No - Coronavirus Screening Are you exhibiting any of the following symptoms?: No Symptoms: Loss of Taste or Smell - Vaccine Status Have you recieved a Covid-19 vaccination: No Avionics Mechanic: Pfizer - Vaccination Dates Date of 2cond Vaccination (if applicable): 04/16/21 - Review of Systems Constitutional: No Symptoms Eyes: No Symptoms Ears, Nose, & Throat: No Symptoms Respiratory: No Symptoms Cardiac: No Symptoms Abdominal/Gastrointestinal: No Symptoms Genitourinary Symptoms: No Symptoms Musculoskeletal: No Symptoms Skin: Other (There are 2 open areas medial aspect left knee. There is no odor. No drainage currently. There are some mild redness around these openings.) Neurological: No Symptoms Psychological: No Symptoms Endocrine: No Symptoms Hematologic/Lymphatic: No Symptoms Immunological/Allergic: No Symptoms All Other Systems: Reviewed and Negative - Past Medical History Pertinent Past Medical History: Yes Neurological History: No Pertinent History ENT History: No Pertinent History Cardiac History: Hypertension, Other Respiratory History: No Pertinent History Endocrine Medical History: No Pertinent History Musculoskeletal History: Degenerative Disk Disease, Osteoarthritis GI Medical History: No Pertinent History History: No Pertinent History Psycho-Social History: Depression Male Reproductive Disorders: No Pertinent History Other Medical History: mitral valve prolapse, got a spinal injection for pain 3 weeks ago. R LEN 4 years ago. Pt has cadaver bone graft in the R knee. - Past Surgical History Past Surgical History: Yes Neuro Surgical History: No Pertinent History Cardiac: No Pertinent History Respiratory: No Pertinent History Gastrointestinal: Hernia Repair Genitourinary: No Pertinent History Musculoskeletal: Joint Replacement Male Surgical History: No Pertinent History Other Surgical History: R hip replacement - Social History Smoking Status: Current every day smoker How long have you smoked: 16 years Exposure to second hand smoke: Yes Drug Use: none Patient Lives Alone: No - Nursing Vital Signs Nursing Vital Signs: Initial Vital Signs Temperature 98.1 F 01/31/23 19:55 Pulse Rate 66 01/31/23 19:55 Respiratory Rate 18 01/31/23 19:55 Blood Pressure 150/78 01/31/23 19:55 O2 Sat by Pulse Oximetry 100 01/31/23 19:55 Pain Scale Pain Intensity 10 - Physical Exam General Appearance: no apparent distress, alert, anxiety Eye Exam: PERRL/EOMI, eyes nml inspection Ears, Nose, Throat Exam: normal ENT inspection, moist mucous membranes Neck Exam: normal inspection, non-tender, supple, full range of motion Respiratory Exam: airway intact, No chest tenderness, No respiratory distress Gastrointestinal/Abdomen Exam: No tenderness Rectal Exam: not done Back Exam: normal inspection, normal range of motion, No CVA tenderness, No vertebral tenderness Extremity Exam: pelvis stable, tenderness (Medial aspect left knee where there are 2 opened wounds) Neurologic Exam: alert, oriented x 3, cooperative, yarn hauler II-XII nml as tested, normal mood/affect, nml cerebellar function, sensation nml Skin Exam: other (Open wounds medial aspect left knee with eschars encircling them. There is no visible drainage at this time there is mild redness around the open wounds there is no odor present. They are tender to palpation) Lymphatic Exam: No adenopathy SpO2 Interpretation: normal O2 Delivery: Room Air Ordered Tests: Active Orders 24 hr Category Date Time Status IV Insertion STAT Care 01/31/23 20:48 Active BLOOD CULTURE Stat Lab 01/31/23 21:15 Received CBC W DIFF Stat Lab 01/31/23 21:05 Completed CMP Stat Lab 01/31/23 21:05 Received CULTURE,WOUND Stat Lab 01/31/23 21:15 Received Lactic Acid Stat Lab 01/31/23 21:15 Completed Lab/Rad Data: Laboratory Result Diagrams 01/31/23 21:05 Laboratory Results 01/31/23 01/31/23 Range/Units 21:15 21:05 WBC 6.5 (4.0-10.5) x10^3/uL RBC 3.55 L (4.1-5.6) x10^6/uL Hgb 13.4 (12.5-18.0) g/dL Hct 38.0 L (42-50) % MCV 107.0 H (78-100) fL MCH 37.7 H (26-32) pg MCHC 35.3 (32-36) g/dL RDW 11.9 (11.5-14.0) % Plt Count 143 L (150-450) x10^3/uL MPV 10.7 (7.5-11.0) fL Gran % 61.0 (36.0-66.0) % Immature Gran % (Auto) 0.2 (0.00-0.4) % Nucleat RBC Rel Count 0.0 (0.00-0.1) % Eos # (Auto) 0.03 (0-0.5) x10^3/uL Immature Gran # (Auto) 0.01 (0.00-0.03) x10^3u/L Absolute Lymphs (auto) 2.01 (1.0-4.6) x10^3/uL Absolute Monos (auto) 0.43 (0.0-1.3) x10^3/uL Absolute Nucleated RBC 0.00 (0.00-0.01) x10^3u/L Lymphocytes % 31.1 (24.0-44.0) % Monocytes % 6.7 (0.0-12.0) % Eosinophils % 0.5 (0.00-5.0) % Basophils % 0.5 (0.0-0.4) % Absolute Granulocytes 3.95 (1.4-6.9) x10^3/uL Basophils # 0.03 (0-0.4) x10^3/uL Lactic Acid 1.9 (0.4-2.0) - Progress Progress: improved, pain not gone completely Progress Note: 01/31/23 21:43 This patient's medical issue is 1 of moderate complexity. The level of complexity and the work-up performed is based on the review of the patient's past medical history, review of the patient's medication list, review of the patient's drug allergies, history of present illness and physical findings on examination. The work-up of this patient is to place an intravenous line, obtain a CBC and a CMP, wound culture and blood culture. He does have some mild redness around the open wounds in the medial aspect of his left knee. He does not have sepsis. His white count is normal, his lactic acid level is normal he is not tachycardic he has no fever. I do think it is reasonable to place him on antibiotics and I will provide him with intravenous Rocephin and oral Levaquin here in the emergency department. He does have a buprenorphine patch in his left upper extremity. I do think it is reasonable to give him a single dose of Dilaudid 1 mg intravenously here in the emergency department but I would not send him home with any narcotics. The addition of narcotics is not contraindicated for single dose in a patient who is on buprenorphine chronically to treat acute pain which this patient has. He is to follow-up with his orthopedic surgeon, either the one in [facility] or [facility] on 02/03/2023 determine who is going to manage this patient's open wounds. Counseled pt/family regarding: lab results, diagnosis Medical Desision Making - Independent Historian Additional History obtained from: Spouse - Diagnostic Testing Diagnostic test were ordered, analyzed, and reviewed by me: Yes - Risk of complications The pt has a mod risk of morbidity or mortality based on: Need for prescription drug management - Departure Departure Disposition: Home Clinical Impression: Drainage from surgical wound Condition: Stable Critical Care Time: No Referrals: JUSTICE ALMANZA [Primary Care Provider] - Follow up/PCP as directed Additional Instructions: Keep wound sites clean daily and cover with a bandage. Take antibiotics as prescribed. Call either your [place] surgeon or your [facility] orthopedic surgeon on 02/03/2023 and let them know about the issues of concern in your left knee area. Discussed with them who will be managing this area as an outpatient. Prescriptions: Levofloxacin [Levaquin 500 MG Tablet] 500 mg PO DAILY #7 tablet
[2023-01-31 20:53] VITALS: O2SAT 100
[2023-01-31 21:20] LABS: Absolute Neutrophil Ct (ANC) 3.95 x10^3/uL (1.4-6.9); BASOPHIL % 0.5 % (0.0-0.4); Basophil (Absolute #) 0.03 x10^3/uL (0-0.4); Eosinophil % 0.5 % (0.00-5.0); Eosinophil (Absolute #) 0.03 x10^3/uL (0-0.5); Hemoglobin 13.4 g/dL (12.5-18.0); IMMATURE GRAN # 0.01 x10^3u/L (0.00-0.03); IMMATURE GRAN % 0.2 % (0.00-0.4); Lymphocyte (Absolute #) 2.01 x10^3/uL (1.0-4.6); Lymphocytes % 31.1 % (24.0-44.0); Mean Corpuscular Hemoglobin 37.7 pg (26-32); Mean Corpuscular Hgb Concent. 35.3 g/dL (32-36); Mean Platelet Volume 10.7 fL (7.5-11.0); Monocyte (Absolute #) 0.43 x10^3/uL (0.0-1.3); Monocytes % 6.7 % (0.0-12.0); Platelet Count 143 x10^3/uL (150-450); Red Blood Count 3.55 x10^6/uL (4.1-5.6); Red Cell Distribution Width 11.9 % (11.5-14.0); White Blood Count 6.5 x10^3/uL (4.0-10.5)
[2023-01-31 21:32] LABS: ALBUMIN 4.4 g/dL (3.5-5.0); ALKALINE PHOSPHATASE 142 U/L (38-126); ANION GAP 16.9 MEQ/L (5-15); BLOOD UREA NITROGEN 7 mg/dL (9-20); CHLORIDE 104 mmol/L (98-107); Calcium 9.1 mg/dL (8.4-10.2); Carbon Dioxide 19 mmol/L (22-30); Creatinine 1 0.59 mg/dL (0.66-1.25); EST GLOMERULAR FILTRATION RATE > 60.0 ML/MIN; Glucose 80 mg/dL (74-106); Potassium 3.4 mmol/L (3.5-5.1); SGOT/AST 81 U/L (17-59); SGPT/ALT 73 U/L (0-50); SODIUM 137 mmol/L (137-145); Total Protein 7.7 g/dL (6.3-8.2)
[2023-01-31] MEDS ORDERED: Hydromorphone 1 mg/ml Injection IV ONE (21:40)
[2023-01-31] MEDS ORDERED: Levofloxacin 500 MG Tablet PO ONE (21:40)
[2023-01-31] MEDS ORDERED: Zofran 4 MG/2 ML VIAL IV ONE (21:40)
[2023-01-31] MEDS ORDERED: ROCEPHIN 1 Gm-D5w 50 ml Bag** 1 G/50 ML IVPB IV STA (21:40)
[2023-01-31] MEDS ORDERED: Zofran 4 MG/2 ML VIAL ONE (21:46)
[2023-01-31] MEDS ORDERED: Levofloxacin 500 MG Tablet ONE (21:46)
[2023-01-31] MEDS ORDERED: Hydromorphone 1 mg/ml Injection ONE (21:46)
[2023-01-31] MEDS ORDERED: ROCEPHIN 1 Gm-D5w 50 ml Bag** 1 G/50 ML IVPB IV ONE (21:46)
[2023-01-31 22:22] VITALS: BP 164/86; PULSE 82
== END 2023-01-31 22:35 | disposition home or self-care (01) ==
LOC: ED 19:33
DX: T81.89XA Other complications of procedures, not elsewhere classified, initial encounter (principal); I10 Essential (primary) hypertension; Z79.891 Long term (current) use of opiate analgesic; Z79.899 Other long term (current) drug therapy; Z72.0 Tobacco use
CPT/HCPCS: 36000; 36415; 80053; 83605; 85025; 87040; 87070; 87077; 87186; 96365; 96374; 96375; 99284; J0696; J1170; J2405; A9270-GY

== ENCOUNTER 2023-03-03 17:39 | Emergency (ER) | payer MEDICARE, OTHER ==
[2023-03-03 18:31] LABS: BASOPHIL % 0.8 % (0.0-0.4); Basophil (Absolute #) 0.08 x10^3/uL (0-0.4); Eosinophil % 0.5 % (0.00-5.0); Eosinophil (Absolute #) 0.05 x10^3/uL (0-0.5); Hematocrit 42.4 % (42-50); Hemoglobin 14.6 g/dL (12.5-18.0); IMMATURE GRAN # 0.02 x10^3u/L (0.00-0.03); IMMATURE GRAN % 0.2 % (0.00-0.4); Lymphocyte (Absolute #) 2.95 x10^3/uL (1.0-4.6); Lymphocytes % 30.9 % (24.0-44.0); Mean Corpuscular Hemoglobin 36.5 pg (26-32); Mean Corpuscular Hgb Concent. 34.4 g/dL (32-36); Mean Platelet Volume 10.3 fL (7.5-11.0); Monocyte (Absolute #) 0.56 x10^3/uL (0.0-1.3); Monocytes % 5.9 % (0.0-12.0); Neutrophil % 61.7 % (36.0-66.0); Platelet Count 182 x10^3/uL (150-450); Red Cell Distribution Width 11.9 % (11.5-14.0); White Blood Count 9.6 x10^3/uL (4.0-10.5)
[2023-03-03 19:00] LABS: ALBUMIN 4.7 g/dL (3.5-5.0); ALKALINE PHOSPHATASE 171 U/L (38-126); ANION GAP 18.4 MEQ/L (5-15); BLOOD UREA NITROGEN 20 mg/dL (9-20); CHLORIDE 104 mmol/L (98-107); Calcium 9.3 mg/dL (8.4-10.2); Carbon Dioxide 17 mmol/L (22-30); Creatinine 1 0.95 mg/dL (0.66-1.25); EST GLOMERULAR FILTRATION RATE > 60.0 ML/MIN; Glucose 90 mg/dL (74-106); Potassium 4.2 mmol/L (3.5-5.1); SGOT/AST 64 U/L (17-59); SGPT/ALT 93 U/L (0-50); SODIUM 135 mmol/L (137-145); Total Protein 8.3 g/dL (6.3-8.2)
[2023-03-03 19:40] VITALS: O2SAT 97
--- NOTE | 2023-03-03 20:03 | ERPHSYRPT ---
- History of Present Illness Source: patient, other (Daughter) Exam Limitations: other (Poor historian) Patient Subjective Stated Complaint: Pt states "I hurt in my left knee. 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 Pt ambulates with a limp. Pt left lower extremity swollen and csm x 4. Physician History: 53 yo WM w cramping in his legs and lethargy x 2 weeks. Pt believes that his potassium is low. He denies fever/cough/chest pain/dyspnea/nausea/vomiting/focal weakness/abdominal pain. Pt has been drinking alcohol. He also complains of LLE pain due to a recent surgery. Timing/Duration: other (2 wks) Modifying Factors: Improves With: movement, nothing Associated Symptoms: denies symptoms Allergies/Adverse Reactions: No Known Drug Allergies Allergy (Verified 01/31/23 19:51) Home Medications: Carvedilol 12.5 mg [Coreg 12.5 mg] 12.5 mg PO BID 04/09/16 [History] Desvenlafaxine Succinate [Pristiq ER] 50 mg PO DAILY 04/09/16 [History] Meloxicam 15 mg [Meloxicam 15 MG] 15 mg PO DAILY 04/09/16 [History] PANTOPRAZOLE 40 mg Tablet [Protonix 40MG Tablet] 40 mg PO DAILY 07/05/21 [History] Spironolactone 50 mg PO DAILY 07/05/21 [History] Buprenorphine 1 each TD WEEKLY 01/31/23 [History] Gabapentin [Neurontin ] 300 mg PO TID 01/31/23 [History] Hx Tetanus, Diphtheria Vaccination/Date Given: No Hx Influenza Vaccination/Date Given: No Hx Pneumococcal Vaccination/Date Given: No Immunizations Up to Date: No Travel Risk - International Travel Have you traveled outside of the country in past 3 weeks: No - Coronavirus Screening Are you exhibiting any of the following symptoms?: No Close contact with a COVID-19 positive Pt in past 14-21 Days: No - Vaccine Status Have you recieved a Covid-19 vaccination: No Form Tamper: [employer] - Vaccination Dates Date of 2cond Vaccination (if applicable): 04/16/21 - Review of Systems Constitutional: No Symptoms Eyes: No Symptoms Ears, Nose, & Throat: No Symptoms Respiratory: No Symptoms Cardiac: No Symptoms Abdominal/Gastrointestinal: No Symptoms Genitourinary Symptoms: No Symptoms Musculoskeletal: No Symptoms, Arthralgias, Myalgias Skin: No Symptoms Neurological: No Symptoms Psychological: No Symptoms Endocrine: No Symptoms Hematologic/Lymphatic: No Symptoms Immunological/Allergic: No Symptoms - Past Medical History Pertinent Past Medical History: Yes Neurological History: No Pertinent History ENT History: No Pertinent History Cardiac History: Hypertension, Other Respiratory History: No Pertinent History Endocrine Medical History: No Pertinent History Musculoskeletal History: Degenerative Disk Disease, Osteoarthritis GI Medical History: No Pertinent History History: No Pertinent History Psycho-Social History: Depression Male Reproductive Disorders: No Pertinent History Other Medical History: mitral valve prolapse, got a spinal injection for pain 3 weeks ago. R LEN 4 years ago. Pt has cadaver bone graft in the R knee. - Past Surgical History Past Surgical History: Yes Neuro Surgical History: No Pertinent History Cardiac: No Pertinent History Respiratory: No Pertinent History Gastrointestinal: Hernia Repair Genitourinary: No Pertinent History Musculoskeletal: Joint Replacement Male Surgical History: No Pertinent History Other Surgical History: R hip replacement. cadaver bone right hip. left knee. left foot fusion - Social History Smoking Status: Current every day smoker How long have you smoked: 16 years Exposure to second hand smoke: Yes Drug Use: none Patient Lives Alone: No - Nursing Vital Signs Nursing Vital Signs: Initial Vital Signs Temperature 96.9 F 03/03/23 17:50 Pulse Rate 67 03/03/23 17:50 Respiratory Rate 18 03/03/23 17:50 Blood Pressure 144/83 03/03/23 17:50 O2 Sat by Pulse Oximetry 98 03/03/23 17:50 Pain Scale Pain Intensity [Left Knee] 10 Pain Intensity 0 Hypertensive - Physical Exam General Appearance: no apparent distress Eye Exam: PERRL/EOMI, eyes nml inspection Ears, Nose, Throat Exam: normal ENT inspection, TMs normal, pharynx normal, moist mucous membranes Neck Exam: normal inspection, non-tender, supple, full range of motion, No meningismus, No mass, No Brudzinski, No Kernig's, No carotid bruit Respiratory Exam: normal breath sounds, lungs clear, airway intact, No chest tenderness, No respiratory distress Cardiovascular Exam: regular rate/rhythm, normal heart sounds, normal peripheral pulses, capillary refill <2 sec, No murmur Gastrointestinal/Abdomen Exam: soft, normal bowel sounds, No tenderness Back Exam: normal inspection, normal range of motion, No CVA tenderness, No vertebral tenderness Neurologic Exam: alert, oriented x 3, cooperative, foreign languages department chair II-XII nml as tested, normal mood/affect, nml cerebellar function, sensation nml Skin Exam: normal color, warm, dry Lymphatic Exam: No adenopathy SpO2 Interpretation: normal SpO2: 97 O2 Delivery: Room Air - Course Nursing assessment & vital signs reviewed: Yes Ordered Tests: Active Orders 24 hr Category Date Time Status Alcohol [ETHYL ALCOHOL] Stat Lab 03/03/23 18:28 Completed CBC W DIFF Stat Lab 03/03/23 18: Completed CMP Stat Lab 03/03/23 18:28 Completed Lab/Rad Data: Laboratory Result Diagrams 03/03/23 18:28 03/03/23 18:28 Laboratory Results 03/03/23 03/03/23 03/03/23 Range/Units 18:28 18:28 18:28 WBC 9.6 (4.0-10.5) x10^3/uL RBC 4.00 L (4.1-5.6) x10^6/uL Hgb 14.6 (12.5-18.0) g/dL Hct 42.4 (42-50) % MCV 106.0 H (78-100) fL MCH 36.5 H (26-32) pg MCHC 34.4 (32-36) g/dL RDW 11.9 (11.5-14.0) % Plt Count 182 (150-450) x10^3/uL MPV 10.3 (7.5-11.0) fL Gran % 61.7 (36.0-66.0) % Immature Gran % (Auto) 0.2 (0.00-0.4) % Nucleat RBC Rel Count 0.0 (0.00-0.1) % Eos # (Auto) 0.05 (0-0.5) x10^3/uL Immature Gran # (Auto) 0.02 (0.00-0.03) x10^3u/L Absolute Lymphs (auto) 2.95 (1.0-4.6) x10^3/uL Absolute Monos (auto) 0.56 (0.0-1.3) x10^3/uL Absolute Nucleated RBC 0.00 (0.00-0.01) x10^3u/L Lymphocytes % 30.9 (24.0-44.0) % Monocytes % 5.9 (0.0-12.0) % Eosinophils % 0.5 (0.00-5.0) % Basophils % 0.8 (0.0-0.4) % Absolute Granulocytes 5.90 (1.4-6.9) x10^3/uL Basophils # 0.08 (0-0.4) x10^3/uL Sodium 135 L (137-145) mmol/L Potassium 4.2 (3.5-5.1) mmol/L Chloride 104 (98-107) mmol/L Carbon Dioxide 17 L (22-30) mmol/L Anion Gap 18.4 H (5-15) MEQ/L BUN 20 (9-20) mg/dL Creatinine 0.95 (0.66-1.25) mg/dL Estimated GFR > 60.0 ML/MIN Glucose 90 (74-106) mg/dL Calcium 9.3 (8.4-10.2) mg/dL Total Bilirubin 0.50 (0.2-1.3) mg/dL AST 64 H (17-59) U/L ALT 93 H (0-50) U/L Alkaline Phosphatase 171 H (38-126) U/L Serum Total Protein 8.3 H (6.3-8.2) g/dL Albumin 4.7 (3.5-5.0) g/dL Ethyl Alcohol 241 H (0-10) mg/dL - Progress Progress Note: 03/03/23 21:18 Nursing note and vital signs reviewed No food or housing insecurities noted Additional history per daughter and later All labs reviewed and shared w pt/ Pt's pain is more of a chronic nature related to multiple orthopedic surgeries. He is also intoxicated at the time of his visit. No evidence of infection or DVT bilaterally. Counseled pt/family regarding: lab results, diagnosis, need for follow-up Medical Desision Making - Independent Historian Additional History obtained from: Spouse, Child - Social Determinants of Health Pt's dx & treatment plan are significantly limited by SDOH: Unemployed - Risk of complications The pt has a mod risk of morbidity or mortality based on: Need for prescription drug management - Departure Departure Disposition: Home Clinical Impression: Muscle cramps, Alcohol abuse, Transaminitis Condition: Stable Critical Care Time: No Referrals: JUSTICE ALMANZA [Primary Care Provider] - Follow up/PCP as directed Instructions: Chronic Pain (DC), Alcohol Use Disorder (DC) Additional Instructions: Quit drinking Follow up with your family MD Fluids Return to ER as needed
[2023-03-03 20:07] VITALS: BP 131/92; PULSE 73
== END 2023-03-03 20:11 | disposition home or self-care (01) ==
LOC: ED 17:39
DX: R25.2 Cramp and spasm (principal); R74.01 Elevation of levels of liver transaminase levels; F10.129 Alcohol abuse with intoxication, unspecified; Y90.8 Blood alcohol level of 240 mg/100 ml or more; R53.83 Other fatigue; I10 Essential (primary) hypertension; Z79.891 Long term (current) use of opiate analgesic; Z79.899 Other long term (current) drug therapy; Z72.0 Tobacco use
CPT/HCPCS: 36415; 80053; 82077; 85025; 99282